=== PATIENT | female | born 1955 | race Caucasian/White ===

== ENCOUNTER 2017-07-06 09:47 | Observation (INO) | payer OTHER ==
[2017-07-06] MEDS ORDERED: SODIUM CHLORIDE 0.9% FLUSH 10 ML FLUSH IVF (10:45)
[2017-07-06 11:08] LABS: AUTOMATED NEUTROPHIL # 6.5 TH/MM3 (1.8-7.7); BASOPHIL # 0.1 TH/MM3 (0-0.2); BASOPHIL % 0.8 % (0.0-2.0); EOSINOPHIL # 0.1 TH/MM3 (0-0.4); EOSINOPHIL % 1.2 % (0.0-4.0); HEMATOCRIT 35.9 % (35.0-46.0); HEMO FLAGS DIFF FINAL; HEMOGLOBIN 12.1 GM/DL (11.6-15.3); LYMPH % 8.9 % (9.0-44.0); LYMPHOCYTE # 0.7 TH/MM3 (1.0-4.8); MEAN CELL VOLUME 95.5 FL (80.0-100.0); MEAN CORPUSCULAR HEMOGLOBIN 32.1 PG (27.0-34.0); MEAN CORPUSCULAR HGB CONC 33.6 % (32.0-36.0); MEAN PLATELET VOLUME 9.5 FL (7.0-11.0); MONO % 3.7 % (0.0-8.0); MONOCYTE # 0.3 TH/MM3 (0-0.9); NEUT % 85.4 % (16.0-70.0); PLATELET COUNT 222 TH/MM3 (150-450); RED BLOOD COUNT 3.76 MIL/MM3 (4.00-5.30); RED CELL DISTRIBUTION WIDTH 12.7 % (11.6-17.2); WHITE BLOOD COUNT 7.6 TH/MM3 (4.0-11.0)
[2017-07-06] MEDS: IBUPROFEN 600 MG TAB PO (11:19)
[2017-07-06] MEDS: SODIUM CHLOR 0.9% 1000 ML INJ 1,000 ML IV ×3 (11:20→15:22)
[2017-07-06 11:30] LABS: ANION GAP 6 MEQ/L (5-15); BICARBONATE 25.6 MEQ/L (21.0-32.0); BLOOD UREA NITROGEN 23 MG/DL (7-18); CALCIUM 9.2 MG/DL (8.5-10.1); CHLORIDE 113 MEQ/L (98-107); CREATININE 1.35 MG/DL (0.50-1.00); GLOMERULAR FILTRATION RATE 40 ML/MIN (>89); GLUCOSE,RANDOM 143 MG/DL (74-106); POTASSIUM 4.6 MEQ/L (3.5-5.1); SODIUM (NA) 145 MEQ/L (136-145)
[2017-07-06] MEDS: PROCHLORPERAZINE INJ 10 MG/2 ML VIAL IVP (12:54)
[2017-07-06] MEDS: ACETAMINOPHEN 325 MG TAB PO (12:54)
[2017-07-06] MEDS: diphenhydrAMINE HCL 50 MG/ML VIAL IVP (12:55)
[2017-07-06] MEDS ORDERED: NALOXONE HCL 0.4 MG/ML AMP IV PUSH (13:15)
[2017-07-06] MEDS ORDERED: ONDANSETRON HCL 4 MG/2 ML VIAL IVP (13:15)
[2017-07-06 13:27] LABS: AMORPHOUS SEDIMENT, URINE RARE; BACTERIA, URINE RARE /hpf; BILIRUBIN, URINE NEG (NEG); BLOOD, URINE NEG (NEG); COMMENT (UR) CULT NOT INDICATED; CULTURE IF INDICATED CULT NOT INDICATED; GLUCOSE,URINE NEG (NEG); HYALINE CAST, URINE 74 /lpf (RARE); KETONE, URINE 10 mg/dL (NEG); MUCUS URINE FEW /lpf (OCC); NITRITE,URINE NEG (NEG); PH, URINE 5.5 (5.0-8.5); SQUAMOUS EPITHELIAL CELL URINE 1 /hpf (0-5); URINE COLOR YELLOW (YELLW/STRAW); URINE LEUKOCYTE ESTERASE NEG (NEG)
[2017-07-06] MEDS ORDERED: GLUCAGON 1 MG/ML VIAL OTHER (13:45)
[2017-07-06] MEDS ORDERED: DEXTROSE 50% IN WATER 50 ML VIAL(D50) IV PUSH (13:45)
[2017-07-06] MEDS ORDERED: GLUCAGON 1 MG IM (14:30)
[2017-07-06] MEDS ORDERED: SUMAtriptan SUCCINATE 50 MG TAB PO (14:30)
[2017-07-06] MEDS ORDERED: GABAPENTIN 100 MG CAP PO (14:30)
[2017-07-06] MEDS ORDERED: CYCLOBENZAPRINE HCL 10 MG TAB PO (14:30)
[2017-07-06] MEDS ORDERED: CETIRIZINE HCL 10 MG TAB PO (14:30)
[2017-07-06] MEDS ORDERED: ALBUTEROL SULFATE 90 MCG/ACT HFA 8 GM INHALER INH (14:30)
[2017-07-06] MEDS ORDERED: DICLOFENAC SODIUM 75 MG DELAYED RELEASE TAB PO (14:30)
[2017-07-06] MEDS: SODIUM CHLORIDE 0.9% FLUSH 10 ML FLUSH IV FLUSH ×2 (15:22→21:00)
[2017-07-06] MEDS ORDERED: ESTRADIOL VAGINAL 10 MCG (16:00)
[2017-07-06] MEDS ORDERED: [UNRECOGNIZED DRUG - OTHER] (16:00)
[2017-07-06] MEDS: INSULIN ASPART SUPPLEMENTAL SCALE SQ ×2 (17:02→21:00)
[2017-07-06] MEDS ORDERED: CRANBERRY 650 MG PO (21:00)
[2017-07-06] MEDS: CALCIUM/VITAMIN D 250 MG/125 U TAB PO (21:04)
[2017-07-06] MEDS: TOPIRAMATE 100 MG TAB PO (21:04)
[2017-07-06] MEDS: AMITRIPTYLINE HCL 25 MG TAB PO (21:04)
[2017-07-07] MEDS: SODIUM CHLOR 0.9% 1000 ML INJ 1,000 ML IV ×3 (00:14→19:08)
[2017-07-07 07:05] LABS: AUTOMATED NEUTROPHIL # 2.9 TH/MM3 (1.8-7.7); BASOPHIL # 0.1 TH/MM3 (0-0.2); BASOPHIL % 1.1 % (0.0-2.0); EOSINOPHIL # 0.2 TH/MM3 (0-0.4); EOSINOPHIL % 4.3 % (0.0-4.0); HEMATOCRIT 28.5 % (35.0-46.0); HEMO FLAGS DIFF FINAL; HEMOGLOBIN 9.7 GM/DL (11.6-15.3); LYMPH % 23.2 % (9.0-44.0); MEAN CELL VOLUME 95.4 FL (80.0-100.0); MEAN CORPUSCULAR HEMOGLOBIN 32.4 PG (27.0-34.0); MEAN PLATELET VOLUME 9.2 FL (7.0-11.0); MONO % 6.6 % (0.0-8.0); MONOCYTE # 0.3 TH/MM3 (0-0.9); NEUT % 64.8 % (16.0-70.0); PLATELET COUNT 159 TH/MM3 (150-450); RED BLOOD COUNT 2.99 MIL/MM3 (4.00-5.30); WHITE BLOOD COUNT 4.5 TH/MM3 (4.0-11.0)
[2017-07-07 07:17] LABS: ALBUMIN 2.7 GM/DL (3.4-5.0); ALT (GPT) 25 U/L (10-53); ANION GAP 6 MEQ/L (5-15); AST (GOT) 18 U/L (15-37); BICARBONATE 21.8 MEQ/L (21.0-32.0); BLOOD UREA NITROGEN 19 MG/DL (7-18); CHLORIDE 119 MEQ/L (98-107); CREATININE 0.88 MG/DL (0.50-1.00); GLOMERULAR FILTRATION RATE 66 ML/MIN (>89); GLUCOSE,RANDOM 97 MG/DL (74-106); POTASSIUM 4.5 MEQ/L (3.5-5.1); SODIUM (NA) 147 MEQ/L (136-145)
[2017-07-07 07:23] LABS: ALKALINE PHOSPHATASE 46 U/L (45-117); TOTAL BILIRUBIN ADULT 0.2 MG/DL (0.2-1.0); TOTAL PROTEIN 5.5 GM/DL (6.4-8.2)
[2017-07-07] MEDS: INSULIN ASPART SUPPLEMENTAL SCALE SQ ×4 (08:21→20:53)
[2017-07-07] MEDS ORDERED: PROBIOTIC PRODUCT PO (09:00)
[2017-07-07] MEDS ORDERED: KRILL OIL PO (09:00)
[2017-07-07] MEDS: MULTIVITAMIN TAB PO (09:15)
[2017-07-07] MEDS: FLUoxetine HCL 20 MG CAP PO (09:15)
[2017-07-07] MEDS: TOPIRAMATE 100 MG TAB PO ×2 (09:15→20:45)
[2017-07-07] MEDS: CALCIUM/VITAMIN D 250 MG/125 U TAB PO ×2 (09:15→20:45)
[2017-07-07] MEDS: buPROPion HCL 150 MG SUSTAINED RELEASE TAB PO (09:15)
[2017-07-07] MEDS: ASCORBIC ACID 500 MG TAB PO (09:15)
[2017-07-07] MEDS: SODIUM CHLORIDE 0.9% FLUSH 10 ML FLUSH IV FLUSH ×2 (09:15→20:45)
[2017-07-07] MEDS: PRAVASTATIN SOD 10 MG TAB PO (09:15)
[2017-07-07] MEDS: SUMAtriptan SUCCINATE 25 MG TAB PO (17:33)
[2017-07-07] MEDS: AMITRIPTYLINE HCL 25 MG TAB PO (20:44)
== END 2017-07-07 21:30 | disposition home or self-care (01) ==
LOC: NEPC 09:47 → NEDA 13:00 → NEPHCDU 14:53
DX: R55 Syncope and collapse (principal); K21.9 Gastro-esophageal reflux disease without esophagitis; I10 Essential (primary) hypertension; E11.40 Type 2 diabetes mellitus with diabetic neuropathy, unspecified; Z79.4 Long term (current) use of insulin; W19.XXXA Unspecified fall, initial encounter
CPT/HCPCS: 70450; 71045; 80048; 80053; 81001; 82948; 85025; 93005; 93306; 93880; 96361; 96374; 96375; 97162-GP; 99285-25